=== PATIENT | female | born 1990 | race Caucasian/White ===

== ENCOUNTER 2019-11-18 12:15 | Emergency (ER) | payer OTHER, SELFPAY ==
[2019-11-18 12:19] VITALS: BP 155/66; PULSE 86; RESP 20; TEMP 36.7; O2SAT 100
--- NOTE | 2019-11-18 12:56 | ED.URI ---
HPI - URI/Sore Throat General Chief Complaint: Upper Respiratory Infection Stated Complaint: sore throat Time Seen by Provider: 11/18/19 12:52 Source: patient and RN notes reviewed Mode of arrival: ambulatory Limitations: no limitations History of Present Illness HPI Narrative: 29-year-old female who [facility] with complaints of 2-day history of sore throat, hoarseness. Patient denies any acute fevers, chills or sweats, denies any ear pain or any acute cough or sinus congestion. Patient states that she is unaware of recent exposure to strep. She has clear lungs on auscultation, respirations even and non labored, SAO2 100 % on room air. Patient states that she did not take a flu shot this season. MD elicited complaint: sore throat Onset (ago): day(s) (2) Consistency: progressively worsening Severity: severe Pain scale (0-10): 9 Able to tolerate fluids by mouth: Yes Exacerbating factors: swallowing Associated symptoms: voice changes and sore throat Treatments prior to arrival: none Related Data Allergies Allergy/AdvReac Type Severity Reaction Status Date / Time No Known Allergies Allergy Verified 11/18/19 12:30 Review of Systems Review of Systems: Narrative: CONSTITUTIONAL: Reports no known fever, chills, or sweats. EYES: Denies visual changes, redness, or discharge. ENT: Denies rhinorrhea, congestion, positive sore throat, no otalgia. CARDIOVASCULAR: Denies chest pain, palpitations, or edema. RESPIRATORY: Denies cough or dyspnea. GASTROINTESTINAL: Denies abdominal pain, nausea, vomiting, or diarrhea. GENITOURINARY: Denies dysuria or hematuria. SKIN: Denies rash or itching. MUSCULOSKELETAL: Denies back pain, joint pain, or myalgia. NEUROLOGIC: Denies headache, numbness, or weakness. PSYCHIATRIC: Denies anxiety or depression. All systems reviewed & are unremarkable except as noted in HPI and below PMFSH Past Medical History Medical History (Updated 11/22/19 @ 08:45 by Maritza Ann NP) No significant past medical history Surgical History Surgical History (Updated 11/22/19 @ 08:43 by Maritza Ann NP) History of appendectomy Social History Social History (Updated 11/22/19 @ 08:45 by Maritza Ann NP) Smoking status: Former smoker Smoking end date: 10/06/16 Living arrangements: with family Gender identity (if verbalized by the patient): Female Comments At time of signature, agree with nursing past medical, social history. There is no relevant family history pertinent to the presenting complaint Exam Narrative: Exam Narrative: GENERAL: Well-appearing, well-nourished, and in no acute distress. HEAD: Normocephalic, atraumatic. EYES: PERRLA and EOMI. ENT: Nares clear, no rhinorrhea or epistaxis. Mucous membranes moist.TM's normal with good light reflex, throat red with swelling and tonsil enlargement, no lesions or exudate noted NECK: Supple.lymphadenopathy CHEST: Clear to auscultation. No respiratory distress.SAO2 100% on room air HEART: Regular rate and rhythm. No murmur heard. Normal peripheral pulses. ABDOMEN: Soft, nontender, nondistended, normal active bowel sounds. EXTREMITIES: Normal range of motion. No edema. SKIN: Warm, dry, no rash. NEURO: No focal deficits. Alert and oriented x3. Course Vital Signs Vital signs: Vital Signs Temperature 36.7 C 11/18/19 12:19 Pulse Rate 86 11/18/19 12:19 Respiratory Rate 20 11/18/19 12:19 Blood Pressure 155/66 H 11/18/19 12:19 Pulse Oximetry 100 11/18/19 12:19 Temperature 36.7 C 11/18/19 12:19 Pulse Rate 86 11/18/19 12:19 Respiratory Rate 20 11/18/19 12:19 Blood Pressure 155/66 H 11/18/19 12:19 Pulse Oximetry 100 11/18/19 12:19 MDM - URI/Sore Throat Differential Diagnosis Differential diagnosis: Likely upper respiratory infection, pharyngitis and other (Strep pharyngitis) Medical Records Attestation: I reviewed the patient's medical records. Lab Data Attestation: I reviewed the patient's
== END 2019-11-18 13:10 | disposition home or self-care (01) ==
PROVIDERS: Emergency Provider Registered Nurse
DX: J02.0 Streptococcal pharyngitis (principal); Z87.891 Personal history of nicotine dependence
CPT/HCPCS: 87880; 99213; G0463

== ENCOUNTER 2019-11-28 13:41 | Emergency (ER) | payer OTHER, SELFPAY ==
[2019-11-28 14:10] VITALS: BP 118/86; PULSE 94; RESP 16; TEMP 37.4; O2SAT 98
--- NOTE | 2019-11-28 15:30 | ED.GENADULT ---
HPI - General Adult General Chief complaint: Upper Respiratory Infection Stated complaint: cough and sore throat Time Seen by Provider: 11/28/19 15:24 Source: patient and RN notes reviewed Mode of arrival: ambulatory Limitations: no limitations History of Present Illness HPI narrative: 29-year-old female presents with complaints of sore throat for 12 days. Symptoms increased over the last 48 hours with nausea and dry cough. Amoxicillin B.I.D. for 10 days with little to no relief. No high fevers, fevers as high as 100F, orally without chills. No drooling, neck or throat swelling. Pain is bilateral. Hurts to swallow. No voice change. Exacerbation factors consist of eating and drinking. No rhinorrhea. Nasal congestion. Dry cough. No chest congestion. Nausea without vomiting, abdominal pain, and diarrhea. Tolerating liquids well. Denies dyspnea, difficulty swallowing, jaw pain, dental pain, facial pain, foreign body sensation, and rash. Remains active. Rosalia denies being , LMP 2 weeks ago. Some parts of this dictation were generated by voice recognition software and may contain typographical and/or grammatical inaccuracies. Related Data Allergies Allergy/AdvReac Type Severity Reaction Status Date / Time No Known Allergies Allergy Verified 11/28/19 14:30 Review of Systems Review of Systems: Narrative: CONSTITUTIONAL: Complains of fever. Denies chills, sweats. EYES: Denies visual changes, redness, discharge. ENT: Denies rhinorrhea, otalgia. Complains of sore throat, congestion. CARDIOVASCULAR: Denies chest pain, palpitations, edema. RESPIRATORY: Denies dyspnea, wheezing. Complains of dry cough. GASTROINTESTINAL: Denies abdominal pain, vomiting, diarrhea. Complains of nausea. GENITOURINARY: Denies dysuria, hematuria, abnormal discharge. SKIN: Denies rash or itching. MUSCULOSKELETAL: Denies acute back pain, joint pain, or myalgia. NEUROLOGIC: Denies numbness or focal weakness. PSYCHIATRIC: Denies anxiety or depression. All systems reviewed & are unremarkable except as noted in HPI and below. [facility] Past Medical History Medical History (Updated 12/02/19 @ 17:02 by CHANDU Thomason) Hypertension Surgical History Surgical History History of appendectomy Family History Family History (Updated 12/02/19 @ 17:01 by CHANDU Thomason) Mother Diabetes mellitus Grandparent Diabetes mellitus Social History Social History Smoking status: Former smoker Smoking end date: 10/06/16 Gender identity (if verbalized by the patient): Female Comments At time of signature, agree with nurse past medical, surgical, social, and family history. There is no relevant family history pertinent to the presenting complaint. Exam Narrative: Exam Narrative: GENERAL: This is a well-nourished, well-developed patient, in no apparent distress. Speaks in full sentences without deficits and ambulates with steady gait without dyspnea. HEAD: normocephalic, atraumatic. EYES: PERRL. Sclera clear/white. Vision is grossly intact. EARS: External ears normal, auditory canals clear and without drainage, TMs normal without perforation. Hearing grossly intact. NOSE: External nose normal with no obvious nasal discharge, nares with moderate redness, no rhinorrhea. Mouth: moist mucous membranes. THROAT: Mucous membranes moist, posterior pharynx with PND, mild erythema, and no exudatel, normal tonsils, no drainage, no concern for Peritonsillar abscess. No drooling, trismus, or neck swelling. NECK: Neck supple, non-tender without lymphadenopathy, masses or thyromegaly. CARDIOVASCULAR: Regular rate and rhythm without murmurs, gallops, or rubs. RESPIRATORY: Clear to auscultation. Breath sounds equal bilaterally. No wheezes, rales, or rhonchi. GASTROINTESTINAL: Abdomen soft, non-tender, nondistended. Bowel sounds a
== END 2019-11-28 15:40 | disposition home or self-care (01) ==
PROVIDERS: Emergency Provider Nurse Practitioner Family
DX: J00 Acute nasopharyngitis [common cold] (principal); J01.90 Acute sinusitis, unspecified; Z87.891 Personal history of nicotine dependence
CPT/HCPCS: 99213; G0463

== ENCOUNTER 2020-11-30 18:06 | Emergency (ER) | payer OTHER, SELFPAY ==
--- NOTE | ~2020-11-30 | XR_ITS ---
EXAMINATION: XR ankle RT min 3V DATE: 11/30/2020 18:42 INDICATION: Right ankle injury and pain. TECHNIQUE: 4 views of right ankle were obtained. COMPARISON: None. FINDINGS: Bone alignment is normal. No fracture. Joint spaces are well maintained. There is ankle sof t tissue swelling. IMPRESSION: 1. No fracture. 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 No fracture.
--- NOTE | ~2020-11-30 | XR_ITS ---
EXAMINATION: XR foot RT min 3V DATE: 11/30/2020 18:43 INDICATION: Right foot injury and pain. TECHNIQUE: 4 views of right foot were obtained. COMPARISON: None. FINDINGS: There is mild hallux valgus. No fracture. Joint spaces are normal. IMPRESSION: 1. Mild hallux valgus. 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 Mild hallux valgus.
[2020-11-30 18:12] VITALS: BP 171/106; PULSE 110; RESP 16; TEMP 37; O2SAT 100
--- NOTE | 2020-11-30 18:20 | ED.LOWEXIN ---
HPI - Extremity Injury (Lower) General Chief Complaint: Extremity Injury, Lower Stated Complaint: right ankle injury Source: patient and RN notes reviewed Mode of arrival: ambulatory Limitations: no limitations History of Present Illness HPI Narrative: 30-year-old female presents to [facility] with complaints of right ankle pain. Patient states 2 days ago she was running and rolled her right ankle. Significant swelling, bruising noted. Positive pedal pulse. Sensation intact in all 5 toes. Capillary refill under 2 seconds. Had been using rice therapy and taking tramadol for pain but came in to have it evaluated. Has her own set of crutches. Related Data Home Medications Medication Instructions Recorded Confirmed No Home Medications 11/30/20 11/30/20 Allergies Allergy/AdvReac Type Severity Reaction Status Date / Time No Known Allergies Allergy Verified 11/30/20 18:21 Review of Systems Review of Systems: Narrative: CONSTITUTIONAL: Denies fever, chills, or sweats. EYES: Denies visual changes, redness, or discharge. ENT: Denies rhinorrhea, congestion, sore throat, or otalgia. CARDIOVASCULAR: Denies chest pain, palpitations, or edema. RESPIRATORY: Denies cough or dyspnea. GASTROINTESTINAL: Denies abdominal pain, nausea, vomiting, or diarrhea. GENITOURINARY: Denies dysuria or hematuria. SKIN: Denies rash or itching. MUSCULOSKELETAL: Denies back pain, right ankle pain with swelling and bruising. NEUROLOGIC: Denies headache, numbness, or weakness. PSYCHIATRIC: Denies anxiety or depression. All other systems reviewed are negative, except as documented in HPI. [facility] Past Medical History Medical History Hypertension Surgical History Surgical History History of appendectomy Family History Family History Mother Diabetes mellitus Grandparent Diabetes mellitus Social History Social History (Updated 11/30/20 @ 19:45 by Sophie Mckee) Smoking status: Former smoker Smoking end date: 10/06/16 Substance use: current Substance use type: marijuana Last use: Daily, today Gender identity (if verbalized by the patient): Female Comments At the time of my signature, I reviewed and agree with the nursing past medical, surgical, social, and family history. There is no relevant family history pertinent to the patient complaint. Exam Narrative: Exam Narrative: GENERAL: This is a well-nourished, well-developed patient, in mild pain. HEAD: normocephalic, atraumatic. EYES: PERRL. Sclera clear/white. Vision is grossly intact. EARS: External ears normal. NECK: Neck supple, non-tender without lymphadenopathy. CARDIOVASCULAR: Regular rate and rhythm without murmurs, gallops, or rubs. RESPIRATORY: Clear to auscultation. Breath sounds equal bilaterally. No wheezes, rales, or rhonchi. GASTROINTESTINAL: Abdomen soft, non-tender, nondistended. SKIN: warm, intact with no suspicious lesions or rash, good texture and turgor. Bruising noted around the right ankle extending into the toes lateral aspect of the foot and quarter the way up the lateral aspect of calf. NEURO: awake, alert, and oriented to person, place and time. There were no obvious focal neurologic abnormalities. EXTREMITIES: No clubbing, cyanosis, or edema. No joint tenderness, effusion, or edema noted. No calf tenderness. Negative Homans sign bilaterally. BACK: Nontender without deformity. No flank tenderness. Course Vital Signs Vital signs: Vital Signs Temperature 98.6 F 11/30/20 18:12 Pulse Rate 110 H 11/30/20 18:12 Respiratory Rate 16 11/30/20 18:12 Blood Pressure 171/106 H 11/30/20 18:12 Pulse Oximetry 100 11/30/20 18:12 Temperature 98.6 F 11/30/20 18:12 Pulse Rate 110 H 11/30/20 18:12 Respiratory Rate 16 11/30/20 18:12 Blood Pressure 152/80 H 11/30/20 18:52 Pulse Oximetry 10
[2020-11-30 18:52] VITALS: BP 152/80
== END 2020-11-30 19:06 | disposition home or self-care (01) ==
PROVIDERS: Emergency Provider Nurse Practitioner
DX: S93.401A Sprain of unspecified ligament of right ankle, initial encounter (principal); S96.911A Strain of unspecified muscle and tendon at ankle and foot level, right foot, initial encounter; X50.9XXA Other and unspecified overexertion or strenuous movements or postures, initial encounter; Y93.02 Activity, running; S90.31XA Contusion of right foot, initial encounter; I10 Essential (primary) hypertension; Z87.891 Personal history of nicotine dependence
CPT/HCPCS: 73610; 73630; 99213; G0463